=== PATIENT | male | born 1960 | race American Indian/Alaskan Native ===

== ENCOUNTER → 2018-07-22 08:15 | Outpatient (CLI) | payer MEDICAID, OTHER, SELFPAY ==
--- NOTE | 2018-07-22 | DI.ECHO.S_ITS ---
[facility]---------+ [facility] +---------+ : : [address] : [place] : : : : [id number] : : : : Phone: [phone]+ Echocardiogram Report + + :Name: JENNIFER HANSEN Study Date: 07/22/2018 Height: 69 in : :[facility] Weight: 158 lb : : Gender: Male BSA: 1.9 m2 : :: 1960 Age: 58 yrs BP: 110/70 mmHg: :Reason For Study: Syncope : : Performed By: Madhuri Robertson : :Referring: GLEN WILCOX : + + Interpretation Summary Normal sinus rhythm. Normal LV size, wall thickness; there is distal lateal hypokinesis; otherwise low normal wall motion of all other visualized segments. EF is 45-50%. Normal chamber sizes. No significant valvular abnormalities. No prior study available for comparison. Procedure: A two-dimensional transthoracic echocardiogram with color flow and Doppler was performed. The study quality was technically adequate. There is no prior echocardiogram noted for this patient. The patient was in normal sinus rhythm during the exam. Left Ventricle: The left ventricle is normal in size. There is normal left ventricular wall thickness. The ejection fraction is estimated to be 45-50%. Diastolic parameters suggest probable normal left ventricular diastolic function and normal filling pressures. Right Ventricle: The right ventricle grossly appears normal in size with probable normal systolic function. Atria: The left atrial size is normal. Right atrial size is normal. The interatrial septum is intact with no evidence for an atrial septal defect. Mitral Valve: The mitral valve is normal in structure and function. There is no mitral regurgitation. Aortic Valve: The aortic valve is trileaflet. The aortic valve opens well. No aortic regurgitation is present. Tricuspid Valve: The tricuspid valve is normal in structure and function. There is trace tricuspid regurgitation. The right ventricular systolic pressure is estimated to be at least 25 mmHg based on an estimated right atrial pressure of 3 mm Hg. Pulmonic Valve: The pulmonic valve is normal in structure and function. There is trace pulmonic regurgitation. Great Vessels: The aortic root is normal size. The dimensions of the ascending aorta are normal. The ascending aorta is normal in size. The IVC is of normal diameter and collapses greater than 50% with a sniff. This suggests a low right atrial pressure of 3 mm Hg. Pericardium/ Pleura There is no pericardial effusion. There is no pleural effusion. MMode/2D Measurements & Calculations LVIDd: 4.8 cm Ao root diam: 3.6 cm LVIDs: 3.7 cm Aortic Jxn: 2.8 cm FS: 23.0 % asc Aorta Diam: 3.1 cm EPSS: 0.94 cm Ao Arch Diam (Prox Trans): 2.6 cm IVSd: 1.1 cm LVPWd: 0.85 cm LV metz. diameter/BSA (cm/m^2): 2.6 LV sys. diameter/BSA (cm/m^2): 2.0 LA dimension: 2.8 cm RA long axis: 5.1 cm LA A2 area: 18.3 cm2 RA area: 18.7 cm2 LA A4 area: 14.9 cm2 RA vol: 57.8 ml LA length (vol): 4.9 cm RA : 30.9 ml/m2 LA vol: 46.9 ml IVC diam: 1.7 cm LA vol index: 25.1 ml/m2 RVDd major: 5.6 cm RVD1 (basal): 3.3 cm RVD2 (mid): 3.3 cm Doppler Measurements & Calculations Ao V2 max: 114.1 cm/sec MV E max tanner: 54.7 cm/sec Ao V2 mean: 74.9 cm/sec MV A max tanner: 60.0 cm/sec Ao max P.2 mmHg MV E/A: 0.91 Ao mean P.6 mmHg Med Peak E' Tanner: 6.2 cm/sec Ao V2 VTI: 24.1 cm E/E' med: 8.8 Lat Peak E' Tanner: 7.3 cm/sec E/E' lat: 7.5 E/e' average: 8.2 MV dec time: 0.26 sec TR max tanner: 236.7 cm/sec TR max P.4 mmHg PA V2 max: 75.9 cm/sec PA V2 mean: 46.5 cm/sec PA mean P.1 mmHg PA Accel Time: 0.19 sec Electronically signed by: Florence Phelps M.D. on Reading Physician:07/23/2018 06:49 AM
--- NOTE | 2018-07-22 | DI.US.S_ITS ---
PROCEDURE: US ABDOMEN COMPLETE INDICATIONS: RIGHT POSTERIOR FLANK LUMP; POSSIBLE AORTIC ANEURYSM TECHNIQUE: Real-time scanning was performed of the abdominal and retroperitoneal organs, with image documentation. COMPARISON: None. FINDINGS: Liver: Liver is normal in size. There is a 2 cm simple cyst involving the medial left lobe of the liver. Mild prominence of the main portal vein can be seen that measures up to 1.5 cm. Gallbladder: No findings of gallstones or sludge are seen. The gallbladder wall is not thickened, measuring 3 mm or less. No specific pericholecystic fluid is seen. The sonographic Galeana sign is negative. Biliary ducts: Intrahepatic bile ducts are non-dilated. Extrahepatic bile duct caliber measures 6-7 mm. Normal is 6-7 mm or less in diameter, or 10 mm or less post-cholecystectomy. Pancreas: Not seen, obscured by overlying bowel gas. Spleen: Spleen is normal in size and homogeneous in echotexture. Kidneys: Kidneys are normal in size and echotexture. Right kidney measures 9.8 cm long; left kidney measures 9.5 cm long. No hydronephrosis or nephrolithiasis. No solid masses. The renal cortex measures within normal limits for thickness. Aorta: Visualized aorta is normal in caliber at less than 3 cm. Iliacs: Proximal common iliac arteries are normal in caliber at less than 2.5 cm. IVC: Intrahepatic inferior vena cava is patent. Miscellaneous: No free abdominal fluid. Additional, dedicated ultrasound scanning is performed at the area of clinical concern involving the right posterior flank lump. No focal ultrasound abnormalities are seen within this region. IMPRESSION: No ultrasound abnormalities can be seen involving the right posterior flank. Negative for aneurysm. 2 cm left liver cyst incidentally noted. Dictated by: Parish Galicia M.D. on 07/22/2018 at 9:38 Approved by: Parish Galicia M.D. on 07/22/2018 at 9:41
== END ==
PROVIDERS: Visit Provider Physician Assistant
DX: R55 Syncope and collapse (principal); R00.2 Palpitations; R19.09 Other intra-abdominal and pelvic swelling, mass and lump; K76.89 Other specified diseases of liver
CPT/HCPCS: 76700; 93306

== ENCOUNTER 2018-09-23 12:09 | Day surgery (SDC) | payer MEDICAID, OTHER, SELFPAY ==
--- NOTE | 2018-09-23 | PATH_ITS ---
[facility] Accession Number: [id number] . 01 Material submitted: . sigmoid colon - LOW SIGMOID POLYP . 02 Diagnosis: Low Sigmoid Colon, Polyp: Tubular adenoma. MRV/09/24/2018 . 02 Electronically signed: . Marco Zepeda MD, PhD, Pathologist NPI- [id number] . 01 Gross description: . LOW SIGMOID POLYP: Received in formalin are 3 fragment(s) of dia, soft tissue measuring 0.1 x 0.1 x 0.1 cm to 0.3 x 0.2 x 0.2 cm which is entirely submitted and submitted entirely in 1 cassette(s) /DMC /DMC . 02 Pathologist provided ICD-10: D12.5 . 02 CPT . 760163 Performed at: 01 [facility] [address] [id number] MD Rufus Rizvi MD Phone: [phone] Performed at: 02 [facility] [address] [place], [place] [id number] MD Heather Pillai MD Phone: [phone]
[2018-09-23 12:26] VITALS: BP 136/75; PULSE 87; RESP 15; TEMP 36.6; O2SAT 93; BMI 21.3
--- NOTE | 2018-09-23 12:31 | PM.HP.1 ---
History of Present Illness Date Patient Seen: 09/23/18 Time Patient Seen: 12:31 Chief complaint: [id number] SCREENING COLONOSCOPY Narrative: Referred for diagnostic colonoscopy for new BRBPR. Happened a few times a month or so ago. Pt had been on Celebrex for nearly 2 decades and was told to stop taking this; the bleeding has not happened since. He also notes some episodes around the same time of crampy pelvic pain. No weight loss, change in diet, change in stool caliber. No significant family history. Has never had a colonoscopy. Meds Home Medications Medication Instructions Recorded Confirmed Type celecoxib [Celebrex] 200 mg PO 0800 #30 08/13/11 Rx Allergies Allergy/AdvReac Type Severity Reaction Status Date / Time hydromorphone Allergy Unknown Verified 09/23/18 12:22 ibuprofen AdvReac Severe Abdominal Verified 09/23/18 12:22 Pain MUSHROOM Allergy Unknown Uncoded 09/23/18 12:22 Review of Systems Constitutional Constitutional: Reports as per HPI Exam Narrative Exam Narrative: AAO, NAD, male of healthy weight EOMI, MMM, no scleral icterus unlabored RA soft, nt/nd MAEW Assessment & Plan (1) Hematochezia: Current visit: Yes Status: Acute Assessment & Plan narrative: - diagnostic colonoscopy --> all R/B/A discussed and pt wishes to proceed
--- NOTE | 2018-09-23 12:34 | P.HP_ITS ---
History of Present Illness Date Patient Seen: 09/23/18 Time Patient Seen: 12:31 Chief complaint: [id number] SCREENING COLONOSCOPY Narrative: Referred for diagnostic colonoscopy for new BRBPR. Happened a few times a month or so ago. Pt had been on Celebrex for nearly 2 decades and was told to stop taking this; the bleeding has not happened since. He also notes some episodes around the same time of crampy pelvic pain. No weight loss, change in diet, change in stool caliber. No significant family history. Has never had a colonoscopy. Meds Home Medications Medication Instructions Recorded Confirmed Type celecoxib [Celebrex] 200 mg PO 0800 #30 08/13/11 Rx Allergies Allergy/AdvReac Type Severity Reaction Status Date / Time hydromorphone Allergy Unknown Verified 09/23/18 12:22 ibuprofen AdvReac Severe Abdominal Verified 09/23/18 12:22 Pain MUSHROOM Allergy Unknown Uncoded 09/23/18 12:22 Review of Systems Constitutional Constitutional: Reports as per HPI Exam Narrative Exam Narrative: AAO, NAD, male of healthy weight EOMI, MMM, no scleral icterus unlabored RA soft, nt/nd MAEW Assessment & Plan (1) Hematochezia: Current visit: Yes Status: Acute Assessment & Plan narrative: - diagnostic colonoscopy --> all R/B/A discussed and pt wishes to proceed
[2018-09-23] MEDS: SODIUM CHLORIDE 0.9% 1,000 ML 100 ML IV (12:37)
[2018-09-23] MEDS: fentaNYL 250 MCG/5 ML INJ IV (13:02)
[2018-09-23] MEDS: MIDAZOLAM 5 MG/5 ML VIAL IV (13:03)
[2018-09-23 13:36] VITALS: BP 118/77; PULSE 80; RESP 21; TEMP 36.8; O2SAT 93
[2018-09-23 13:41] VITALS: BP 128/81; PULSE 76; RESP 17; O2SAT 96
[2018-09-23 13:45] VITALS: BP 118/80; PULSE 80; RESP 15; TEMP 36.1; O2SAT 97
--- NOTE | 2018-09-24 09:03 | PM.OP.ENDO ---
Operative Date/Time/Diagnoses Date of procedure: 09/23/18 Time of procedure: 13:36 Pre-op diagnosis: Hematochezia Post-op diagnosis: same Procedure & Clinicians Study performed: Diagnostic Colonoscopy Same procedure as scheduled: Yes (with Biopsy) Indications: Hematochezia Surgeon: Yane Cotto Procedure Notes SCOAP/Timeout: 12:56 Procedure in detail: After obtaining informed consent, the patient was brought to the GI suite and placed in the left lateral decubitus position on the examination table. After placement of appropriate monitors, the patient was given incremental doses of Versed and Fentanyl until an appropriate level of sedation was achieved. A time out was held per SCOAP protocol. A digital rectal examination was performed and did not reveal any masses or obstructing lesions but a moderately enlarged prostate was palpated. The colonoscope was gently passed into the patient's anus and the entire colon navigated to the level of the cecum with minimal difficulty. Prep was adequate. Once in the cecum, the scope was slowly withdrawn being sure to go before and beyond all mucosal folds and prominences as able to get a thorough examination. A tiny distal sigmoid polyp was identified and removed with cold forceps for biopsy. Other findings include moderate diverticulosis. At the level of the rectal vault, the scope was retroflexed and the internal anal canal was examined. The scope was straightened and air aspirated from the colon. The instrument was removed from the patient's body and the procedure was concluded. The patient was allowed to awaken from sedation without difficulty and taken to the post-anesthesia care unit in good condition. Scope withdrawal time: 13 Sedation minutes: 32 Findings: diverticulosis and polyp (1-2 mm, distal sigmoid) Specimen(s): none sent (sigmoid polyp) Complications: none Impression: 1. sigmoid polyp- likely hyperplastic 2. diverticulosis Recommendations: Colonscopy in 5 years and High fiber diet Follow up: as needed Disposition: PACU
== END 2018-09-23 14:10 | disposition home or self-care (01) ==
PROVIDERS: Visit Provider Surgery
PROC: 0DJD8ZZ Inspection of Lower Intestinal Tract, Via Natural or Artificial Opening Endoscopic (ICD-10-PCS; CPT 45378; principal; 2018-09-23 13:00)
DX: K92.1 Melena (principal); K57.30 Diverticulosis of large intestine without perforation or abscess without bleeding; D12.5 Benign neoplasm of sigmoid colon
CPT/HCPCS: 45380; 88305; 99152; 99153; J2250; J3010

== ENCOUNTER 2019-12-28 17:49 | Emergency (ER) | payer OTHER, MEDICAID, SELFPAY ==
[2019-12-28 17:57] VITALS: BP 121/67; PULSE 88; RESP 15; TEMP 36.5; O2SAT 96; BMI 22.7
--- NOTE | 2019-12-28 17:59 | DI.RAD.S_ITS ---
PROCEDURE: XR WRIST RT MIN 3V INDICATIONS: wrist injury ,hit it on something TECHNIQUE: Four views of the wrist were acquired. COMPARISON: [facility], , WRIST MINIMUM 3 VIEWS LEFT, 07/20/2008, 12:32. FINDINGS: Bones: No acute fractures or dislocations. Deformity of remote, healed 5th metacarpal fracture. No suspicious bony lesions. Degenerative cyst in the ulna at the radioulnar articulation. Small cyst in the scaphoid distally. Scaphoid view: Intact scaphoid with subcortical cystic degeneration. Soft tissues: No suspicious soft tissue calcifications. Trace calcification of the distal radioulnar joint. IMPRESSION: 1. No acute fracture. 2. Scattered cystic degeneration. 3. Trace cartilaginous calcification. Dictated by: Carolyn Briones M.D. on 12/28/2019 at 18:44 Approved by: Carolyn Briones M.D. on 12/28/2019 at 18:45
--- NOTE | 2019-12-28 19:47 | ED.UPPEXIN ---
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 He denies numbness or tingling, he does have some pain with range of motion of the wrist and tenderness and some mild swelling. He initially went to the [facility], however they do not have x-ray there and due to possible deformity of his wrist he was advised to come to the emergency department and get x-ray imaging and further evaluation. complaint: injury to: right and wrist Onset (ago): hour(s) (2) Other Extremity Injury: Right: wrist Other injuries: none Handedness: right Place: work Severity: moderate Severity scale (1-10): 4 Relieving factors: immobilization Exacerbating factors: movement of extremity Context: other (Smashed right wrist hard against a plastic crate when he lost his balance due to footing from an oyster on the floor) Associated symptoms: denies other symptoms Related Data Allergies Allergy/AdvReac Type Severity Reaction Status Date / Time hydromorphone Allergy Unknown Verified 12/28/19 17:57 ibuprofen AdvReac Severe Abdominal Verified 12/28/19 17:57 Pain MUSHROOM Allergy Unknown Uncoded 09/23/18 12:22 Review of Systems <Saranya Garcias PA-C - Last Filed: 12/28/19 23:22> Review of Systems Narrative: GENERAL: Denies chills, fatigue, malaise, fever, sweats. HEENT: Denies sinus pain, ear pain, sore throat, difficulty swallowing, dizziness. RESPIRATORY: Denies dyspnea, cough, wheezing, hemoptysis, sputum. CARDIOVASCULAR: Denies chest pain, palpitations, orthopnea, edema, GASTROINTESTINAL: Denies nausea, vomiting, abdominal pain, diarrhea, constipation, melena. : Denies dysuria, frequency, incontinence, hematuria, urinary retention. MUSCULOSKELETAL: denies weakness, positive for joint pain and bony pain of the right wrist otherwise negative for joint pain and bony pain SKIN: Positive for swelling of the right wrist Denies rash, skin lesions, or other NEUROLOGIC: Denies weakness, headache, numbness, change in speech, confusion, seizures, incoordination. PSYCHIATRIC: No concerning psychosocial issues. 12 point review of systems is negative except for those stated above Patient History <Saranya Garcias PA-C - Last Filed: 12/28/19 23:22> Social History household members: spouse Smoking Status: Unknown if ever smoked Smoking Status: Unknown if ever smoked alcohol intake frequency: holidays/special occasions only Substance Use Type: marijuana Exam <Saranya Garcias PA-C - Last Filed: 12/28/19 23:22> Narrative Exam Narrative: GENERAL: 59 year old patient appears stated age. Well-nourished, well-developed patient, in mild distress. HEAD: Atraumatic. Normocephalic. EYES: Pupils equal round and reactive. Extraocular motions intact. No scleral icterus. No injection or drainage. ENT: Nose without bleeding, purulent drainage. Airway patent. NECK: Trachea midline. Non tender CARDIOVASCULAR: Regular rate and rhythm without murmurs, gallops, or rubs. RESPIRATORY: Clear to auscultation. Breath sounds equal bilaterally. No wheezes, rales, or rhonchi. EXTREMITIES: There is slight swelling of the medial right wrist, as compared to the left. There is tenderness to the right wrist about the radial styloid and distally up to the proximal thumb. There is increased tenderness of the right wrist with passive and active movement of the 1st 2nd and 3rd digits. There is significant tenderness with palpation in the area of the flexor digitorum tendon. Passive range of motion is intact with pain, active range of motion is reduced. Capillary refill of the affected digit and right hand is intact, less than 2 seconds, sensation is intact. No other edema or joint tenderness noted. NEURO: AOx3. SKIN: No rash or erythema of visible areas Initial Vital Signs Initial Vital Signs: Vital Signs Temperature 97.7 F 12/28/19 17:57 Pulse Rate 88 12/28/19 17:57 Respiratory Rate 15 12/28/19 17:57 Blood Pressure 121/67 12/28/19 17:57 Pulse Oximetry 96 12/28/19 17:57 <Veronica Hernandes MD - Last Filed: 12/29/19 03:08> Initial Vital Signs Initial Vital Signs: Vital Signs Temperature 97.7 F 12/28/19 17:57 Pulse Rate 88 12/28/19 17:57 Respiratory Rate 15 12/28/19 17:57 Blood Pressure 121/67 12/28/19 17:57 Pulse Oximetry 96 12/28/19 17:57 Scores <Saranya Garcias PA-C - Last Filed: 12/28/19 23:22> GCS Vaughn coma scale eye opening: Spontaneous Vaughn coma scale verbal response: Orientated Vaughn coma scale motor response: Obey commands Vaughn coma scale total score: 15 Course <Saranya Garcias PA-C - Last Filed: 12/28/19 23:22> Orders Ordered: Discontinued Medications Acetaminophen (Tylenol) 650 mg PO NOW ONE Stop: 12/28/19 19:50 Last Admin: 12/28/19 20:06 Dose: 650 mg Documented by: JATIN Vital Signs Vital signs: Vital Signs - 8 hr 12/28/19 20:18 Pulse Rate 64 Respiratory Rate 15 Blood Pressure 128/78 Pulse Oximetry 99 <Veronica Hernandes MD - Last Filed: 12/29/19 03:08> Orders Ordered: Discontinued Medications Acetaminophen (Tylenol) 650 mg PO NOW ONE Stop: 12/28/19 19:50 Last Admin: 12/28/19 20:06 Dose: 650 mg Documented by: ESAUN Vital Signs Vital signs: Vital Signs - 8 hr 12/28/19 20:18 Pulse Rate 64 Respiratory Rate 15 Blood Pressure 128/78 Pulse Oximetry 99 MDM - Extremity Injury (Upper) <Saranya Garcias PA-C - Last Filed: 12/28/19 23:22> Differential Diagnosis Differential diagnosis: Likely sprain and strain of wrist, fracture of wrist, finger sprain and fracture of hand Medical Records Attestation: I reviewed the patient's medical records. Imaging Data Extremity x-ray #1: Attestation: I personally reviewed and interpreted this imaging study as follows: Radiologist's Impression: [address] [address] XRay Report Signed Patient: Micah Carballo Sr KMR#: [id number] : 2Acct:[id number] Age/Sex: 59 / MDate of Service: 12/28/19 Loc: ED Accession Number: [id number] Procedure: XR wrist RT min 3V Ordering Provider: Veronica Hernandes MD PROCEDURE: XR WRIST RT MIN 3V INDICATIONS: wrist injury ,hit it on something TECHNIQUE: Four views of the wrist were acquired. COMPARISON: [facility], , WRIST MINIMUM 3 VIEWS LEFT, 07/20/2008, 12:32. FINDINGS: Bones: No acute fractures or dislocations. Deformity of remote, healed 5th metacarpal fracture. No suspicious bony lesions. Degenerative cyst in the ulna at the radioulnar articulation. Small cyst in the scaphoid distally. Scaphoid view: Intact scaphoid with subcortical cystic degeneration. Soft tissues: No suspicious soft tissue calcifications. Trace calcification of the distal radioulnar joint. IMPRESSION: 1. No acute fracture. 2. Scattered cystic degeneration. 3. Trace cartilaginous calcification. Dictated by: Carolyn Briones M.D. on 12/28/2019 at 18:44 Approved by: Carolyn Briones M.D. on 12/28/2019 at 18:45 [facility] Narrative Medical decision making narrative: Is a generally well-appearing 59-year-old who presents with right wrist pain following an injury sustained at work in which he smashed his wrist against a plastic shellfish crate after losing his balance when he slipped on an oyster on the floor. On the x-ray read There is no evidence of fracture, however there is some cystic degeneration of the bone and cartilaginous calcification, which are chronic, however I do not suspect that this explains his pain today, which is acute, nor does explain his swelling of the wrist pain with range of motion, or tenderness on exam. [place] he sustained a sprain/strain of his right wrist, specifically likely an injury of the flexor digitorum superficialis given his most prominent area of tenderness in his reduced range of motion, he is advised to follow-up with his PCP he is provided with a splint and Zen wrap, advised to take Tylenol for pain provided with emergency return precautions, follow-up plan, all questions are answered. He initially did not plan to complete an L and I paperwork today however information was filled out in registration, provider information was filled in and form was completed during the visit and patient's copy was provided to him prior to discharge. Discharge Plan Departure Patient Disposition: Home Clinical Impression: Strain of flexor digitorum superficialis tendon, Traumatic injury of wrist Discharge Date/Time: 12/28/19 20:29 Instructions: DI for Wrist Sprain, How To Perform RICE (Rest, Ice, Compress, Elevate) Activity Restrictions/Additional Instructions: Thank you for allowing us to be part of your care in the emergency department today. There is no evidence of an emergent or life threatening illness at this time, but follow up with your doctor in 1-2 days is recommended nonetheless to continue to rule out serious underlying causes of your symptoms. Please call the office for an appointment. Please return to the Emergency Department for any worsening or persistent symptoms. Please take Tylenol as needed for pain, however the best pain control for you may be rest, ice, compression with an Zen wrap and elevation of your wrist, we are providing you with an Zen wrap and splint today in the emergency department, however you should minimize use of your wrist for the next few days especially in order to promote healing. On rare occasions there can be a fracture that is not seen on the initial x-ray, however I think this is unlikely today. Based on how your injury occurred. You do have multiple cysts of bones in your arm and wrist as we discussed today, you can discuss this further with your primary care doctor, I do not think this is the cause of your pain today. I recommend light duty or avoiding work entirely if possible for the remainder of the week. I provided a work note for you. I have also filled out the initial L and I form, and we have provided you with your copy of this today, you do not have to follow through with this if you prefer not to, however it is important to get this done on the initial visit. Referrals: Tai Guy PA-C [Primary Care Provider] - Stand Alone Forms: Work Release Note <Veronica Hernandes MD - Last Filed: 12/29/19 03:08> Cosign ED Attending Cosignature Attestation: I was immediately available in the department for consultation throughout this patient's visit. I agree with documentation as above. Veronica Hernandes MD
[2019-12-28] MEDS: ACETAMINOPHEN 325 MG TABLET 650 MG PO (20:06)
[2019-12-28 20:18] VITALS: BP 128/78; PULSE 64; RESP 15; O2SAT 99
== END 2019-12-28 20:29 | disposition home or self-care (01) ==
PROVIDERS: Emergency Provider Student in an Organized Health Care Education/Training Program; PCP Physician Assistant
DX: S66.811A Strain of other specified muscles, fascia and tendons at wrist and hand level, right hand, initial encounter (principal); W22.8XXA Striking against or struck by other objects, initial encounter; Y99.0 Civilian activity done for income or pay
CPT/HCPCS: 73110; 99283; 99284

== ENCOUNTER → 2020-05-29 11:01 | Outpatient (CLI) | payer MEDICAID, OTHER, SELFPAY ==
--- NOTE | 2020-05-29 | DI.RAD.S_ITS ---
PROCEDURE: XR CERVICAL SPINE 4V OR 5V INDICATIONS: NECK PAIN TECHNIQUE: 5 views of the cervical spine acquired. COMPARISON: [facility], , CERVICAL SPINE 2 OR 3 VIEWS, 06/19/2016, 16:33. FINDINGS: Bones: No fracture. Reversal of the normal cervical lordosis. Multilevel degenerative endplate sclerosis and spurring. Diffuse facet arthropathy. Severe narrowing of the C5-C6 and C6-C7, and C7-T1 disc spaces. Grade 1 anterolisthesis of C3 on C4 and C4 on C5. On the right, mild right C3-C4 bony foraminal narrowing. On the left, diffuse mild to moderate bony foraminal narrowing throughout the cervical spine. Soft tissues: No prevertebral soft tissue swelling. IMPRESSION: Severe cervical spondylosis and facet arthropathy as above. Slight diffuse interval progression since 06/19/16. Dictated by: Faisal Mueller M.D. on 05/29/2020 at 13:16 Approved by: Faisal Mueller M.D. on 05/29/2020 at 13:19
== END ==
PROVIDERS: PCP Physician Assistant; Referring Provider Family Medicine; Visit Provider Family Medicine
DX: M54.2 Cervicalgia (principal); M47.812 Spondylosis without myelopathy or radiculopathy, cervical region
CPT/HCPCS: 72050

== ENCOUNTER → 2021-02-26 09:14 | Outpatient (CLI) | payer MEDICAID, OTHER, SELFPAY ==
--- NOTE | 2021-02-26 | DI.RAD.S_ITS ---
PROCEDURE: XR SHOULDER RT MIN 2V INDICATIONS: acute pain of right shoulder TECHNIQUE: 3 views of the shoulder were acquired. COMPARISON: [facility], , SHOULDER MINIMUM 2 VIEW LEFT, 06/04/2016, 11:28. FINDINGS: Bones: No acute fracture or dislocation. Likely old injury versus prior surgery involving acromioclavicular joint. Mild glenohumeral joint osteoarthritic changes are seen. No suspicious bony lesions. Visualized ribs appear intact. Soft tissues: No suspicious soft tissue calcifications. IMPRESSION: Mild glenohumeral joint osteoarthritis. Likely prior surgery versus remote injury involving right acromioclavicular joint. No acute fracture or dislocation. Normal shoulder alignment. Dictated by: Michael Buck M.D. on 02/26/2021 at 11:09 Approved by: Michael Buck M.D. on 02/26/2021 at 11:14
== END ==
PROVIDERS: PCP Physician Assistant; Referring Provider Physician Assistant; Visit Provider Physician Assistant
DX: M25.511 Pain in right shoulder (principal); M19.011 Primary osteoarthritis, right shoulder
CPT/HCPCS: 73030

== ENCOUNTER → 2023-03-13 17:19 | Outpatient (CLI) | payer MEDICAID, OTHER, SELFPAY ==
--- NOTE | 2023-03-13 17:22 | DI.RAD.S_ITS ---
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 COMPARISON: [facility], CR, XR HAND 3+ VIEWS LEFT, 05/22/2022, 11:02. FINDINGS: Bones: No fractures or dislocations. Normal alignment. Joint spaces are maintained. Tiny radial head osteophytosis. No suspicious bony lesions. Soft tissues: No elbow joint effusion. No suspicious soft tissue calcifications. IMPRESSION: No acute osseous abnormality. Dictated by: Angélica Hill M.D. on 03/13/2023 at 19:25 Approved by: Angélica Hill M.D. on 03/13/2023 at 19:29
== END ==
PROVIDERS: PCP Physician Assistant; Referring Provider Family Medicine; Visit Provider Family Medicine
DX: G56.22 Lesion of ulnar nerve, left upper limb (principal)
CPT/HCPCS: 73070

== ENCOUNTER → 2023-05-01 17:14 | Outpatient (CLI) | payer MEDICAID, OTHER, SELFPAY ==
--- NOTE | 2023-05-01 | DI.MRI.S_ITS ---
PROCEDURE: MR ELBOW LT W CON INDICATIONS: ULNAR NERVE ENTRAPMENT LEFT TECHNIQUE: Noncontrast coronal proton density fast spin echo and T2 fast spin echo with fat saturation, axial and sagittal T1 spin echo and T2 fast spin echo with fat saturation through the elbow. COMPARISON: None. FINDINGS: Image quality: Excellent. Lateral structures: The lateral ulnar collateral ligament and radial collateral ligament both appear thickened with intrasubstance T2 hyperintense signal at its lateral epicondylar insertion. The overlying common extensor tendon also appears thickened with intrasubstance T2 hyperintense signal at its lateral epicondylar insertion. Medial structures: The ulnar collateral ligament appears intact. The overlying common flexor tendon appears normal. There is mildly increased T2 hyperintense signal w involving ulnar nerve within the cubital tunnel. Anterior structures: Distal biceps tendon is mildly thickened at its proximal radial insertion. The brachialis tendon is intact. No bicipitoradial bursal fluid. The median and radial neurovascular bundles appear normal; no focal muscle atrophy to suggest nerve impingement. Posterior structures: Distal triceps tendinosis and low-grade intrasubstance partial-thickness tear at its proximal olecranon insertion is noted. No olecranon bursal fluid. Bone and cartilage: No bone marrow contusions or fractures. No osteochondral injuries. IMPRESSION: 1. Suggestion of mild lateral epicondylitis with sprain/low-grade partial-thickness tear involving proximal radial collateral ligament and tendinosis and low-grade partial-thickness tear involving overlying common extensor tendon origin. 2. Medial elbow tendons and ligaments are grossly intact. Slightly enlarged ulnar nerve with signal abnormality within the cubital tunnel concerning for mild neuritis. 3. Distal biceps tendinosis at its proximal radial insertion. Tendinosis/low-grade partial-thickness tear involving distal triceps tendon at its proximal olecranon insertion. 4. No marrow edema. No fracture or dislocation. No osteochondral injuries. Dictated by: Michael Buck M.D. on 05/04/2023 at 10:44 Approved by: Michael Buck M.D. on 05/04/2023 at 10:53
== END ==
PROVIDERS: PCP Physician Assistant; Referring Provider Family Medicine; Visit Provider Family Medicine
DX: G56.22 Lesion of ulnar nerve, left upper limb (principal); S53.432A Radial collateral ligament sprain of left elbow, initial encounter; S53.492A Other sprain of left elbow, initial encounter
CPT/HCPCS: 73221

== ENCOUNTER → 2024-03-31 12:54 | Outpatient (CLI) | payer MEDICAID, OTHER, SELFPAY ==
--- NOTE | 2024-03-31 12:58 | DI.RAD.S_ITS ---
PROCEDURE: XR FOOT RT MIN 3V INDICATIONS: PAIN RIGHT FOOT TECHNIQUE: 3 views of the foot were acquired. COMPARISON: None. FINDINGS: Bones: No fractures or dislocations. No suspicious bony lesions. Soft tissues: No tibiotalar joint effusion. Achilles tendon appears normal. IMPRESSION: No acute fracture. No osseous lesion. If symptoms and/or clinical suspicion for pathology persist, further assessment with repeat, or advanced imaging (e.g., CT, MRI, or bone scan) may be helpful for further assessment. Dictated by: Emery Sharp M.D. on 03/31/2024 at 13:13 Approved by: Emery Sharp M.D. on 03/31/2024 at 13:14
== END ==
PROVIDERS: PCP Physician Assistant; Referring Provider Nurse Practitioner Family; Visit Provider Nurse Practitioner Family
DX: M79.671 Pain in right foot (principal); M79.674 Pain in right toe(s); S97.81XA Crushing injury of right foot, initial encounter; X58.XXXA Exposure to other specified factors, initial encounter
CPT/HCPCS: 73630